=== PATIENT | female | born 1980 | race Caucasian/White ===

== ENCOUNTER 2017-07-30 17:44 | Emergency (ER) | payer BC ==
[~2017-07-30] VITALS: Ht 162.6 cm; Wt 105.0 kg
[2017-07-30 18:32] LABS: COLLECTION METHOD CLEAN CATCH
[2017-07-30 18:38] LABS: MUCOUS Present /lpf; PH 5 (5-8); SQUAMOUS EPITHELIAL 0-2 /hpf; URINE APPEARANCE Clear; URINE BACTERIA Rare /hpf; URINE BILIRUBIN Negative (NEGATIVE); URINE BLOOD 1+ (NEGATIVE); URINE COLOR Yellow; URINE GLUCOSE Negative (NEGATIVE); URINE KETONE Negative (NEGATIVE); URINE LEUKOCYTE ESTERASE Negative (NEGATIVE); URINE NITRATE Negative (NEGATIVE); URINE PROTEIN(semi-quant) Negative (NEGATIVE); URINE RBC 0-2 /hpf; URINE UROBILINOGEN Negative (NEGATIVE)
[2017-07-30 18:45] LABS: BASO % 0.5 % (0.0-2.0); EOS # 0.1 (0.0-0.7); EOS % 1.7 % (0-4.0); GRAN % 61.1 % (42.2-75.2); LYMPH # 2.5 (1.2-3.4); LYMPH % 30.9 % (20.0-51.0); MEAN CELL VOLUME 96 fl (80.0-100.0); MEAN CORPUSCULAR HEMOGLOBIN 32 pg (27.0-31.0); MEAN CORPUSCULAR HGB CONC 33 g/dl (33.0-37.0); MEAN PLATELET VOLUME 9.9 fl (7.4-10.4); MONO # 0.4 (0.1-0.6); MONO % 5.4 % (1.7-9.3); PLATELET COUNT 242 K/mm3 (130-400); REDCELL DISTRIBUTION WIDTH-CV 12.3 % (11.5-14.5)
[2017-07-30 21:28] VITALS: BP 116/77; PULSE 75; TEMP 98.9
== END 2017-07-30 21:30 | disposition home or self-care (01) ==
LOC: COL.ER 17:44
PROVIDERS: Emergency Medicine
DX: O20.0 Threatened abortion (principal); Z3A.09 9 weeks gestation of pregnancy
CPT/HCPCS: J2791

== ENCOUNTER 2017-08-02 14:52 | Observation (INO) | payer BC ==
[~2017-08-02] VITALS: Ht 162.7 cm; Wt 104.5 kg
[2017-08-02] VITALS (9 sets, daily range): BP systolic 81–108; BP diastolic 50–84; PULSE 56–96; TEMP 97.5–98.4
[2017-08-02] MEDS ORDERED: ASPIRIN 81M81 MG/TA2 PO (14:56)
[2017-08-02 15:31] LABS: BASO # 0.1 (0.0-0.2); BASO % 0.5 % (0.0-2.0); EOS # 0.1 (0.0-0.7); EOS % 1.3 % (0-4.0); GRAN # 6.3 (1.4-6.5); GRAN % 66.7 % (42.2-75.2); HEMATOCRIT 41.2 % (37.0-47.0); HEMOGLOBIN 13.6 g/dl (12.5-16.0); LYMPH # 2.5 (1.2-3.4); LYMPH % 26.4 % (20.0-51.0); MEAN CELL VOLUME 96 fl (80.0-100.0); MEAN CORPUSCULAR HEMOGLOBIN 32 pg (27.0-31.0); MEAN CORPUSCULAR HGB CONC 33 g/dl (33.0-37.0); MEAN PLATELET VOLUME 9.9 fl (7.4-10.4); MONO # 0.5 (0.1-0.6); MONO % 4.8 % (1.7-9.3); PLATELET COUNT 259 K/mm3 (130-400); RED BLOOD COUNT 4.28 M/mm3 (4.10-5.30); REDCELL DISTRIBUTION WIDTH-CV 12.2 % (11.5-14.5)
[2017-08-02] MEDS ORDERED: PERCOCET 325 MG1 TA2 PO (18:19)
== END 2017-08-02 21:10 | disposition home or self-care (01) ==
LOC: COL.ER 14:52 → OB 16:34
PROVIDERS: Emergency Medicine
DX: O03.4 Incomplete spontaneous abortion without complication (principal); K21.9 Gastro-esophageal reflux disease without esophagitis; G43.909 Migraine, unspecified, not intractable, without status migrainosus; F41.9 Anxiety disorder, unspecified; F32.9 Major depressive disorder, single episode, unspecified; Z83.3 Family history of diabetes mellitus; Z82.49 Family history of ischemic heart disease and other diseases of the circulatory system
CPT/HCPCS: J0690; J1885; J2270; J2405; J2704; J3010; J7030; J7120

== ENCOUNTER → 2018-08-29 | Outpatient (CLI) | payer BC ==
[~2018-08-29] MED LIST: ASPIRIN 81M81 MG/TA2 PO; PERCOCET 325 MG1 TA2 PO
== END ==
LOC: COL.RAD 08:57
DX: M17.11 Unilateral primary osteoarthritis, right knee (principal); M25.562 Pain in left knee

== ENCOUNTER 2018-09-14 18:13 | Emergency (ER) | payer BC ==
[~2018-09-14] VITALS: Ht 162.6 cm; Wt 117.7 kg
[2018-09-14 18:24] VITALS: BP 135/78; TEMP 97.8
[2018-09-14] MEDS ORDERED: BENADRYL25 M2 PO ×2 (18:54→19:41)
[2018-09-14] MEDS ORDERED: ZOLOFT 50MG50 MG PO (18:54)
[2018-09-14] MEDS ORDERED: SYMJEPI0.3 MG/0.3 IJ (19:41)
[2018-09-14] MEDS ORDERED: PREDNISONE20 MG PO (19:41)
[2018-09-14] MEDS ORDERED: PEPCID 20MG TAB20 MG PO (19:41)
[2018-09-14 19:49] VITALS: PULSE 74
== END 2018-09-14 19:50 | disposition home or self-care (01) ==
LOC: COL.ER 18:13
DX: T63.461A Toxic effect of venom of wasps, accidental (unintentional), initial encounter (principal); L23.89 Allergic contact dermatitis due to other agents
CPT/HCPCS: J1200; J7512

== ENCOUNTER 2018-10-11 08:00 | Outpatient (RCR) | payer BC ==
[~2018-10-11 08:00] MED LIST changes: +BENADRYL25 M2 PO; +PEPCID 20MG TAB20 MG PO; +PREDNISONE20 MG PO; +SYMJEPI0.3 MG/0.3 IJ; +ZOLOFT 50MG50 MG PO
== END 2018-10-16 15:55 | disposition home or self-care (01) ==
LOC: MKS.ESL.PT 08:00
DX: M25.561 Pain in right knee (principal); M25.562 Pain in left knee

== ENCOUNTER → 2019-01-22 | Outpatient (CLI) | payer BC ==
[2019-01-22 20:03] LABS: BASO % 0.5 % (0.0-2.0); EOS # 0.1 (0.0-0.7); EOS % 1.2 % (0-4.0); GRAN % 61.8 % (42.2-75.2); HEMOGLOBIN 13.4 g/dl (12.5-16.0); LYMPH # 1.9 (1.2-3.4); LYMPH % 29.4 % (20.0-51.0); MEAN CELL VOLUME 96 fl (80.0-100.0); MEAN CORPUSCULAR HEMOGLOBIN 31 pg (27.0-31.0); MEAN CORPUSCULAR HGB CONC 33 g/dl (33.0-37.0); MEAN PLATELET VOLUME 11.4 fl (7.4-10.4); MONO # 0.4 (0.1-0.6); MONO % 6.8 % (1.7-9.3); PLATELET COUNT 237 K/mm3 (130-400); RED BLOOD COUNT 4.27 M/mm3 (4.10-5.30); REDCELL DISTRIBUTION WIDTH-CV 12.3 % (11.5-14.5)
[2019-01-22 20:08] LABS: ALBUMIN 3.9 gm/dL (3.5-5.0); BILIRUBIN,TOTAL 0.4 mg/dL (0.0-1.0); CALCIUM 9.2 mg/dL (8.4-10.2); CREATININE, serum 1.1 (0.52-1.25); POTASSIUM 4.2 mmol/L (3.4-5.0); TOTAL PROTEIN 7.2 gm/dL (6.4-8.2)
== END ==
LOC: ZCOL.LAB 16:09
PROVIDERS: Family Medicine
DX: R10.13 Epigastric pain (principal)

== ENCOUNTER → 2019-01-23 | Outpatient (CLI) | payer BC | LOC: COL.LAB 15:01 | DX: R10.13 Epigastric pain (principal) ==

== ENCOUNTER → 2019-01-28 | Outpatient (CLI) | payer BC | LOC: COL.RAD 09:13 | DX: R10.13 Epigastric pain (principal) ==

== ENCOUNTER 2019-03-12 07:12 | Day surgery (SDC) | payer BC ==
[~2019-03-12] VITALS: Ht 162.6 cm; Wt 119.0 kg
[2019-03-12] VITALS (9 sets, daily range): BP systolic 100–147; BP diastolic 50–80; PULSE 55–70; TEMP 97.4–97.7
[2019-03-12] MEDS ORDERED: PRIL40 PO (07:32)
--- NOTE | 2019-03-12 09:40 | NUR ---
Patient to OR with JANA Jaquez at this time.
[2019-03-12] MEDS ORDERED: MOTRIN 600600 MG/TAB PO (12:00)
[2019-03-12] MEDS ORDERED: PERCOCET 325 MG1 TA2 PO (12:01)
--- NOTE | 2019-03-12 12:15 | NUR ---
Pt to [facility] bay 6 via cart from PACU. Pt awake and alert. Pt had 5 laproscopic sites to abdomen. Sites are clean and dry with pearce set intact. Pt sips on sprite without diffiuclties. Pt rating pain to abdomen 5/10. in room. Will continue to monitor. Call light within reach.
--- NOTE | 2019-03-12 12:30 | NUR ---
Patient is resting in room. She has 5/10 pain LLQ, described as cramping. She is drinking sprite. Offered and receives crackers. Will bring her medication with next vital sign for pain. Denies any nausea at this time.
--- NOTE | 2019-03-12 12:45 | NUR ---
Patient is resting in room. Given Motrin for pain 5/10 LLQ. Patient and ask about discharge criteria - criteria explained. Tolerating PO well. VSS and WNL on room air.
--- NOTE | 2019-03-12 13:00 | NUR ---
Patient resting in room. Pain remains 5/10, but recently received PO motrin. Will re-check pain in 30 min to see if has improved. Patient instructed to call if increases in that time period.
--- NOTE | 2019-03-12 13:30 | NUR ---
Patient's given Percocet prescription to fill at pharmacy at this time.
--- NOTE | 2019-03-12 13:30 | NUR ---
Patient rates pain 5/10, cramping, LLQ. Offered percocet for pain. Patient receives 1 tab PO percocet for pain. Denies any nausea or other complaints.
--- NOTE | 2019-03-12 14:00 | NUR ---
Patient is resting comfortably in room. She states her pain is improved. Pain rated at 3/10. Denies nausea or other need.
--- NOTE | 2019-03-12 14:30 | NUR ---
Patient is resting comfortably. She ambulates with standby assist to restroom.
--- NOTE | 2019-03-12 14:42 | NUR ---
Patient voice and returns to room.
--- NOTE | 2019-03-12 14:50 | NUR ---
Spouse has returned and and IV discontinued. Patient is dressing and spouse assists.
--- NOTE | 2019-03-12 15:01 | NUR ---
Initial visit; Patient thanked Forming Machine Adjuster for looking in on her following her surgical procedure and offering God's blessings and to keep her in [employer]ing Machine Adjuster's prayers.
--- NOTE | 2019-03-12 15:05 | NUR ---
Dismissal instructions given and voices understanding of these. Assisted into wheelchair and dismissed to home per private vehicle and taken to the front door per wheelchair by Dalia DAVENPORT with dismissal instructions in hand.
== END 2019-03-12 15:05 | disposition home or self-care (01) ==
LOC: SDCO 07:12
DX: K82.4 Cholesterolosis of gallbladder (principal); E78.00 Pure hypercholesterolemia, unspecified; F41.9 Anxiety disorder, unspecified; F32.9 Major depressive disorder, single episode, unspecified; K59.09 Other constipation; Z98.51 Tubal ligation status; K21.9 Gastro-esophageal reflux disease without esophagitis; Z79.899 Other long term (current) drug therapy; Z83.79 Family history of other diseases of the digestive system; Z80.42 Family history of malignant neoplasm of prostate; Z83.3 Family history of diabetes mellitus; Z82.49 Family history of ischemic heart disease and other diseases of the circulatory system; Z98.891 History of uterine scar from previous surgery; E66.01 Morbid (severe) obesity due to excess calories; Z68.41 Body mass index [BMI] 40.0-44.9, adult
CPT/HCPCS: J0690; J2405; J2550; J2704; J3010; J7120

== ENCOUNTER → 2019-03-25 | Outpatient (CLI) | payer BC ==
[~2019-03-25] MED LIST changes: +MOTRIN 600600 MG/TAB PO; +PRIL40 PO
== END ==
LOC: ZCOL.LAB 17:49
DX: T81.40XD Infection following a procedure, unspecified, subsequent encounter (principal)

== ENCOUNTER 2019-10-14 11:53 | Emergency (ER) | payer BC ==
[~2019-10-14] VITALS: Ht 162.6 cm; Wt 119.5 kg
[2019-10-14 12:06] VITALS: TEMP 98.3
[2019-10-14 12:36] LABS: BASO % 0.4 % (0.0-2.0); EOS # 0.1 (0.0-0.7); EOS % 1.3 % (0-4.0); GRAN # 5.5 (1.4-6.5); GRAN % 70.1 % (42.2-75.2); HEMATOCRIT 42.3 % (37.0-47.0); HEMOGLOBIN 13.9 g/dl (12.5-16.0); LYMPH # 1.8 (1.2-3.4); LYMPH % 22.7 % (20.0-51.0); MEAN CELL VOLUME 96 fl (80.0-100.0); MEAN CORPUSCULAR HEMOGLOBIN 31 pg (27.0-31.0); MEAN CORPUSCULAR HGB CONC 33 g/dl (33.0-37.0); MONO # 0.4 (0.1-0.6); PLATELET COUNT 251 K/mm3 (130-400); RED BLOOD COUNT 4.42 M/mm3 (4.10-5.30); REDCELL DISTRIBUTION WIDTH-CV 12.6 % (11.5-14.5)
[2019-10-14 12:57] LABS: ALANINE AMINOTRANSFERASE 22 U/L (4-34); ALBUMIN 4.2 gm/dL (3.5-5.0); ALKALINE PHOSPHATASE 94 U/L (50-136); ANION GAP 6 mmol/L (7-16); AST,SGOT 24 U/L (15-37); BILIRUBIN,TOTAL 0.5 mg/dL (0.0-1.0); BLOOD UREA NITROGEN 16 mg/dL (7-17); C-REACTIVE PROTEIN 0.9 mg/dL (0.0-0.9); CALCIUM 9.4 mg/dL (8.4-10.2); CARBON DIOXIDE 25 mmol/L (22-30); CHLORIDE 107 mmol/L (98-107); CREATININE, serum 1.11 (0.52-1.25); GLUCOSE 103 mg/dL (74-106); LIPASE 62 U/L (23-300); POTASSIUM 4.3 mmol/L (3.4-5.0); SODIUM 138 mmol/L (137-145); TOTAL PROTEIN 7.7 gm/dL (6.4-8.2)
[2019-10-14 13:04] LABS: D-DIMER < 200.00 ng/mLDDu (200-230)
[2019-10-14 13:12] LABS: TROPONIN-I < 0.012 ng/mL (0.000-0.035)
[2019-10-14 15:25] VITALS: BP 125/68; PULSE 56
== END 2019-10-14 15:30 | disposition home or self-care (01) ==
LOC: COL.ER 11:53
PROVIDERS: Emergency Medicine
DX: R07.89 Other chest pain (principal)
CPT/HCPCS: J1885; J2405; J7030

== ENCOUNTER 2020-04-02 07:03 | Outpatient (CLI) | payer BC ==
[2020-04-02] VITALS (8 sets, daily range): BP systolic 103–127; BP diastolic 67–76; PULSE 60–68
[~2020-04-02] VITALS: Ht 162.6 cm; Wt 123.0 kg
[~2020-04-02 07:03] MED LIST changes: +ASPIRIN E.C. 8181 MG PO; +CALCIUM CARBON650 M2 PO; +LYSINE 500500 MG/TAB PO; +VITAMIN D31000 I1 PO; +ZOLOFT 100MG100 MG PO
--- NOTE | 2020-04-02 07:32 | NUR ---
pt to nish
[2020-04-02 08:50] LABS: CSF APPEARANCE CLEAR; CSF COLOR COLORLESS; GLUCOSE,CSF 60 mg/dL (40-70); TOTAL PROTEIN,CSF 31 mg/dL (15-45)
[2020-04-02 08:51] LABS: CSF RBC 2 /mm3 (0-0)
[2020-04-02 09:10] LABS: CSF MONONUCLEAR 100 % (70-100); CSF POLYMORPHONUCLEAR 0 % (0-6)
--- NOTE | 2020-04-02 10:20 | NUR ---
Pt is ready for departure. I reviewed dc instructions with pt who denied any questions at this time. puncture site looks good, bandaid is clean and dry. pt denies headache or other symptom. Pt amb to exit with steady gait.
[2020-04-06 15:35] LABS: CSF OLIG BD INTERPRETATION 0 bands (<2); CSF OLIGOCLONAL BANDING 0 bands (()); SE OLIGOCLONAL BANDING 0 bands (())
[2020-04-06 17:41] LABS: ALBUMIN CSF 13.9 mg/dL (<=27.0)
[2020-04-06 18:04] LABS: ALBUMUN SERUM 3720 mg/dL (()); IGG,SERUM 1060 mg/dL (()); IGG/ALBUMIN SERUM 0.28 (<=0.40)
[2020-04-06 18:18] LABS: CSF IGG/ALBUMIN 0.13 (<=0.21); CSF,IGG 1.8 mg/dL (<=8.1); CSF-IGG INDEX 0.46 (<=0.85)
== END 2020-04-02 10:20 | disposition home or self-care (01) ==
LOC: COL.RAD 07:03
PROVIDERS: Psychiatry & Neurology Neurology
DX: E23.6 Other disorders of pituitary gland (principal)

== ENCOUNTER 2022-01-16 16:44 | Emergency (ER) | payer BC ==
[~2022-01-16] VITALS: Ht 162.6 cm; Wt 122.7 kg
[2022-01-16 17:09] VITALS: TEMP 98.3
[2022-01-16] MEDS ORDERED: BENTYL 20MG20 MG/TAB PO (17:42)
[2022-01-16] MEDS ORDERED: CRESTOR20 MG PO (17:42)
[2022-01-16] MEDS ORDERED: TOPAMAX 100MG100 M1 PO (17:42)
[2022-01-16] MEDS ORDERED: LOZOL1.25 MG PO (17:42)
[2022-01-16 17:49] LABS: COLLECTION METHOD CLEAN CATCH
[2022-01-16 17:58] LABS: BASO % 0.5 % (0.0-2.0); EOS # 0.1 K/mm3 (0.0-0.7); EOS % 1.5 % (0.0-4.0); GRAN # 5.2 K/mm3 (1.4-6.5); GRAN % 58.9 % (42.2-75.2); HEMATOCRIT 41.7 % (37.0-47.0); HEMOGLOBIN 13.7 g/dl (12.5-16.0); LYMPH # 2.9 K/mm3 (1.2-3.4); LYMPH % 32.4 % (20.0-51.0); MEAN CELL VOLUME 94 fl (80.0-100.0); MEAN CORPUSCULAR HEMOGLOBIN 31 pg (27-31); MEAN CORPUSCULAR HGB CONC 33 g/dl (33.0-37.0); MEAN PLATELET VOLUME 10.3 fl (7.4-10.4); MONO # 0.6 K/mm3 (0.1-0.6); MONO % 6.4 % (1.7-9.3); PLATELET COUNT 257 K/mm3 (130-400); RED BLOOD COUNT 4.43 M/mm3 (4.10-5.30); REDCELL DISTRIBUTION WIDTH-CV 12.8 % (11.5-14.5)
[2022-01-16 18:13] LABS: URINE APPEARANCE Clear (CLEAR/HAZY); URINE BACTERIA Rare /hpf (NONE SEEN); URINE COLOR Yellow (YELLOW); URINE RBC 0-2 /hpf (0-2)
[2022-01-16 18:14] LABS: PH 8.5 (5.0-8.5); URINE BLOOD Negative (NEGATIVE); URINE GLUCOSE Negative (NEGATIVE); URINE KETONE Negative (NEGATIVE); URINE NITRATE Negative (NEGATIVE); URINE PROTEIN(semi-quant) Negative (NEGATIVE); URINE UROBILINOGEN 0.2 E.U/dL (0.2-1.0)
[2022-01-16 18:22] LABS: ALBUMIN 3.7 gm/dL (3.5-5.0); BILIRUBIN,TOTAL 0.2 mg/dL (0.2-1.2); C-REACTIVE PROTEIN 0.57 mg/dL (0.00-0.50); CALCIUM 9.2 mg/dL (8.4-10.2); CREATININE, serum 1.2 mg/dL (0.57-1.11); POTASSIUM 3.4 mmol/L (3.5-4.5); TOTAL PROTEIN 7.3 gm/dL (6.2-8.1)
[2022-01-16] MEDS ORDERED: PERCOCET 325 MG1 TA2 PO (19:31)
[2022-01-16 19:45] VITALS: BP 95/68; PULSE 70
== END 2022-01-16 19:53 | disposition home or self-care (01) ==
LOC: COL.ER 16:44
PROVIDERS: Nurse Practitioner
DX: R10.84 Generalized abdominal pain (principal); G89.29 Other chronic pain; Z90.49 Acquired absence of other specified parts of digestive tract; Z32.02 Encounter for pregnancy test, result negative
CPT/HCPCS: J2270; J2405; J3010; J7030

== ENCOUNTER 2023-06-10 16:29 | Emergency (ER) | payer OTHER ==
[~2023-06-10] VITALS: Ht 162.6 cm; Wt 118.2 kg
[~2023-06-10 16:29] MED LIST changes: +BENTYL 20MG20 MG/TAB PO; +CRESTOR20 MG PO; +LOZOL1.25 MG PO; +TOPAMAX 100MG100 M1 PO
[2023-06-10 16:34] VITALS: TEMP 97.7
[2023-06-10 16:53] LABS: BASO % 0.3 % (0.0-2.0); EOS # 0.1 K/mm3 (0.0-0.7); EOS % 0.5 % (0.0-4.0); GRAN # 6.2 K/mm3 (1.4-6.5); GRAN % 64.7 % (42.2-75.2); HEMATOCRIT 45.8 % (37.0-47.0); HEMOGLOBIN 15.1 g/dl (12.5-16.0); LYMPH # 2.8 K/mm3 (1.2-3.4); LYMPH % 28.8 % (20.0-51.0); MEAN CELL VOLUME 94 fl (80.0-100.0); MEAN CORPUSCULAR HEMOGLOBIN 31 pg (27-31); MEAN CORPUSCULAR HGB CONC 33 g/dl (33.0-37.0); MEAN PLATELET VOLUME 10.2 fl (7.4-10.4); MONO # 0.5 K/mm3 (0.1-0.6); MONO % 5.3 % (1.7-9.3); PLATELET COUNT 286 K/mm3 (130-400); RED BLOOD COUNT 4.89 M/mm3 (4.10-5.30); REDCELL DISTRIBUTION WIDTH-CV 12.8 % (11.5-14.5)
[2023-06-10] MEDS ORDERED: Mag/Al Hydrox/Simeth Susp 30 ML CUP PO ONE (17:00)
[2023-06-10 17:14] LABS: ALANINE AMINOTRANSFERASE 30 U/L (0-55); ALKALINE PHOSPHATASE 79 U/L (40-150); ANION GAP 12 mmol/L (7-16); AST,SGOT 37 U/L (5-34); BILIRUBIN,TOTAL 0.7 mg/dL (0.2-1.2); BLOOD UREA NITROGEN 15 mg/dL (7-19); CALCIUM 9.3 mg/dL (8.4-10.2); CARBON DIOXIDE 20 mmol/L (22-29); CHLORIDE 110 mmol/L (98-107); CREATININE, serum 1.26 mg/dL (0.57-1.11); GLUCOSE 82 mg/dL (70-99); POTASSIUM 3.3 mmol/L (3.5-4.5); SODIUM 142 mmol/L (136-145); TOTAL PROTEIN 7.4 gm/dL (6.2-8.1)
[2023-06-10 17:39] LABS: TROPONIN-I < 0.010 ng/mL (0.00-0.033)
[2023-06-10] MEDS ORDERED: Ondansetron 4 MG/2 ML VIAL IV ONE (19:30)
[2023-06-10 21:20] VITALS: BP 113/77; PULSE 64
== END 2023-06-10 21:20 | disposition home or self-care (01) ==
LOC: COL.ER 16:29
PROVIDERS: Emergency Medicine
DX: R07.89 Other chest pain (principal); R74.01 Elevation of levels of liver transaminase levels
CPT/HCPCS: J2405

== ENCOUNTER 2023-07-11 12:26 | Day surgery (SDC) | payer OTHER ==
[~2023-07-11] VITALS: Ht 162.6 cm; Wt 114.3 kg
[~2023-07-11 12:26] MED LIST changes: +LR 1,000 ML IV SCH
[2023-07-11] MEDS ORDERED: PRISTIQ 50 MG T50 MG PO (13:26)
[2023-07-11] MEDS ORDERED: MAG-OX 400400 MG/TAB PO (13:28)
[2023-07-11] MEDS ORDERED: AIMOVIG AU70 MG/1 ML SQ (13:28)
[2023-07-11] MEDS ORDERED: WELLBUTRIN XL150 MG PO (13:29)
[2023-07-11] MEDS ORDERED: KEPPRA1000 MG PO (13:29)
[2023-07-11] MEDS ORDERED: HCTZ12.5TAB PO (13:29)
[2023-07-11] MEDS ORDERED: NITROSTAT0.4 MG/TAB SL (13:30)
[2023-07-11] MEDS ORDERED: Lidocaine PF 2% (20 MG/ML) 5 ML VIAL ONE (13:52)
[2023-07-11] MEDS ORDERED: fentaNYL 50 MCG/ML 2 ML VIAL ONE (13:52)
[2023-07-11] MEDS ORDERED: Ondansetron 4 MG/2 ML VIAL IV PRN ×2 (14:00→16:45)
[2023-07-11] MEDS ORDERED: Meperidine 50 MG/ML 1 ML VIAL IV PRN (14:00)
[2023-07-11] MEDS ORDERED: HYDROmorphone 2 MG/1 ML VIAL IV PRN (14:00)
[2023-07-11 14:47] VITALS: BP 103/64; PULSE 64; TEMP 98.3
--- NOTE | 2023-07-11 14:49 | NUR ---
1306 PT AMBULATORY TO BAY 5 WITH A STEADY GAIT, BREATHING EVEN AND UNLABORED. PT IS ALERT AND ORIENTED, ACCOMPANIED BY HER . CONSENTS REVIEWED AND SIGNED BY PT. IV ESTABLISHED. LR INFUSING VIA GRAVITY AT [facility]. CALL LIGHT IN REACH. WARM BLANKET PROVIDED.
[2023-07-11] MEDS ORDERED: NORCO 325 MG-51 TAB PO (15:37)
[2023-07-11 16:32] VITALS: BP 117/65; PULSE 81; TEMP 97.8
[2023-07-11 16:45] VITALS: BP 107/87; PULSE 70
[2023-07-11] MEDS ORDERED: oxyCODONE/Acetaminophen 5-325 MG TAB PO PRN (16:45)
[2023-07-11] MEDS ORDERED: Acetaminophen 325 MG TAB PO PRN (16:45)
[2023-07-11 17:00] VITALS: BP 115/73; PULSE 60
[2023-07-11] MEDS ORDERED: HYDROmorphone 0.5 MG/0.5 ML SYRINGE IV PRN (17:00)
[2023-07-11 17:15] VITALS: BP 99/64; PULSE 60
[2023-07-11 17:45] VITALS: BP 119/78; PULSE 60
--- NOTE | 2023-07-11 20:42 | NUR ---
[id number]: PT TO [facility] BAY FROM OR S/P HEMORRHOIDECTOMY ARRIVED L&O, PLACED ON MONITOR, VSS ON RA RECEIVED REPORT AND ASSUMED CARE OF PT FROM SUZANNA/HORACIO FAMILY STEPPED OUT AND WILL RETURN TO TAKE PT HOME SHORTLY C/O 6/10 BUT TOLERABLE ANAL PAIN UPON ARRIVAL - DECLINED OFFER FOR INTERVENTION, ASSISTED IN REPOSITIONING AND OFFLOADING. DRSG (4X4 AND MESH BRIEFS) [facility]I PROVIDED FOOD/FLUIDS, TOLERATING WELL 1710 PT C/O 8/10 ANAL PAIN - 0.5MG IVP DILAUDID GIVEN, TOLERATED WELL AND WAS EFFECTIVE. REPORTS PAIN DECREASED TO 3/10, GIVEN 650MG PO APAP FOR ANTICIPATORY PAIN FOR RIDE HOME AT 1750 - DECLINED FURTHER INTERVENTION TO INCLUDE ICE PACK - WILL USE FROZEN GEL PACKS ONCE HOME FOR PAIN CONTROL. PT A&O, NAD, VSS ON RA, TOLERATING PO, IS WITHOUT SIGNIFICANT COMPLAINT, WITH STEADY GAIT BY END OF STAY. FAMILY BROUGHT TO BEDSIDE. IV D/C'D. D/C INSTRUCTIONS WITH NEED TO CALL DR'S OFFICE IN AM FOR FOLLOW UP AND PRN REVIEWED AND HANDED TO PT. ALL QUESTIONS AND CONCERNS ADDRESSED TO PT SATISFACTION. TAKEN TO EXIT VIA W/C WITH ALL BELONGINGS AND PAPERWORK IN HAND, ASSISTED INTO PASSENGER SEAT OF POV. FAMILY TO DRIVE HOME.
== END 2023-07-11 18:15 | disposition home or self-care (01) ==
LOC: SDCO 12:26
DX: K64.4 Residual hemorrhoidal skin tags (principal); K64.2 Third degree hemorrhoids; E66.9 Obesity, unspecified; Z68.41 Body mass index [BMI] 40.0-44.9, adult
CPT/HCPCS: J0690; J1170; J2704; J3010; J7120